=== PATIENT | female | born 1980 | race Caucasian/White ===

== ENCOUNTER 2018-03-14 16:18 | Emergency (ER) | payer SELFPAY ==
[~2018-03-14] VITALS: Ht 157.5 cm; Wt 99.8 kg
[~2018-03-14 16:18] MED LIST: BENZ100C PO; HYDR-971 PO; LANS30CA PO; LEVO500T59 PO
[2018-03-14] MEDS ORDERED: IV NORMAL SALINE 1,000ML 1,000 ML IV SCH (16:40)
[2018-03-14] MEDS ORDERED: IV NORMAL SALINE 1,000ML 1,000 ML IV ONE (16:45)
--- NOTE | 2018-03-14 16:48 | PHYS DOC ---
Past History Past Medical History: Diabetes Past Surgical History: Cholecystectomy, Alcohol Use: None Drug Use: None Adult General HPI HPI Patient is a 37-year-old female with a past history of [id number] diabetes. She states that she had been taking glipizide 5 mg daily and metformin 500 mg twice a day, but lost her insurance and has not had a refill and has run out of her medication about 3-4 weeks ago. She states she has been self administering another family member's insulin, 10 units of NovoLog, and 10 units of Lantus daily. However, she states over the past few days she has had increasing urinary frequency, and generalized fatigue. She has not had any pain. She denies any chest pain, shortness of breath, dizziness, lightheadedness , abdominal pain, nausea, vomiting, fevers, or chills. She states she checked her blood sugar on her father's glucometer, and her blood sugar read "high". She presents to the emergency department for evaluation. There are no alleviating, or exacerbating factors to her symptoms. Review of Systems Review of Systems Constitutional: Denies fever or chills [] Eyes: Denies change in visual acuity, redness, or eye pain [] HENT: Denies nasal congestion or sore throat [] Respiratory: Denies cough or shortness of breath [] Cardiovascular: The patient denies any shortness of breath, chest pain, palpitations, or orthopnea [] GI: Denies abdominal pain, nausea, vomiting, bloody stools or diarrhea [] : Denies dysuria or hematuria [] Musculoskeletal: Denies back pain or joint pain [] Integument: Denies rash or skin lesions [] Neurologic: Denies headache, focal weakness or sensory changes [] Endocrine: Reports polyuria or polydipsia [] All other systems were reviewed and found to be within normal limits, except as documented in this note. Allergies Allergies Allergies Coded Allergies Type Severity Reaction Last Updated Verified No Known Drug Allergies 06/04/14 No Physical Exam Physical Exam PHYSICAL EXAM: CONSTITUTIONAL: Well developed, well nourished HEAD: normocephalic, atraumatic EENT: PERRL, EOMI. Conjunctivae normal color, sclerae non-icteric; moist mucous membranes. NECK: Supple, non-tender; no meningismus. LUNGS: Lungs CTA, breathing even and unlabored. Normal air movement. HEART: Regular rate and rhythm, no murmur CHEST: No deformity; non-tender ABDOMEN: The abdomen is soft, and non-tender, no masses or bruits. EXTREM: Normal ROM; no deformity, no calf tenderness. Normal pulses palpable in all extremities. There is no pedal edema. SKIN: No rash; no diaphoresis NEURO: Alert; normal speech and cognition; CN's grossly intact; strength grossly intact without focal deficit. BACK: No CVA TTP. Current Patient Data Lab Results Laboratory Tests Test 03/14/18 16:36 Glucose (Fingerstick) 561 mg/dL (70-99) *H Laboratory Tests Test 03/14/18 16:36 03/14/18 16:50 03/14/18 17:00 03/14/18 17:45 Glucose (Fingerstick) 561 mg/dL 394 mg/dL White Blood Count 7.2 x10^3/uL Red Blood Count 5.20 x10^6/uL Hemoglobin 15.7 g/dL Hematocrit 46.7 % Mean Corpuscular Volume 90 fL Mean Corpuscular Hemoglobin 30 pg Mean Corpuscular Hemoglobin Concent 34 g/dL Red Cell Distribution Width 13.8 % Platelet Count 182 x10^3/uL Neutrophils (%) (Auto) 65 % Lymphocytes (%) (Auto) 24 % Monocytes (%) (Auto) 7 % Eosinophils (%) (Auto) 3 % Basophils (%) (Auto) 1 % Neutrophils # (Auto) 4.7 x10^3uL Lymphocytes # (Auto) 1.7 x10^3/uL Monocytes # (Auto) 0.5 x10^3/uL Eosinophils # (Auto) 0.2 x10^3/uL Basophils # (Auto) 0.1 x10^3/uL Sodium Level 128 mmol/L Potassium Level 4.0 mmol/L Chloride Level 93 mmol/L Carbon Dioxide Level 27 mmol/L Anion Gap 8 Blood Urea Nitrogen 12 mg/dL Creatinine 1.0 mg/dL Estimated GFR (Cockcroft-Gault) 63.1 BUN/Creatinine Ratio 12 Glucose Level 547 mg/dL Calcium Level 9.2 mg/dL Total Bilirubin 0.5 mg/dL Aspartate Amino Transf (AST/SGOT) 138 U/L Alanine Aminotransferase (ALT/SGPT) 166 U/L Alkaline Phosphatase 127 U/L Total Protein 8.2 g/dL Albumin 3.8 g/dL Albumin/Globulin Ratio 0.9 Acetone Level Neg Urine Collection Type Unknown Urine Color Yellow Urine Clarity Clear Urine pH 5.0 Urine Specific [place] <=1.005 Urine Protein Neg Urine Glucose (UA) >=1000 mg/dL Urine Ketones (Stick) Neg mg/dL Urine Blood Neg Urine Nitrite Neg Urine Bilirubin Neg Urine Urobilinogen Dipstick 0.2 mg/dL Urine Leukocyte Esterase Neg Urine RBC Rare /HPF Urine WBC Occ /HPF Urine Squamous Epithelial Cells Occ /LPF Urine Bacteria 0 /HPF Current Medications Medications (Trade) Dose Ordered Sig/Robel Route PRN Reason Start Time Stop Time Status Last Admin Dose Admin Sodium Chloride 1,000 ml @ 1,000 mls/hr Q1H IV 03/14/18 16:40 03/14/18 17:39 DC 03/14/18 17:05 Sodium Chloride 1,000 ml @ 1,000 mls/hr 1X ONCE IV 03/14/18 16:45 03/14/18 17:44 DC Insulin Human Regular (HumuLIN R VIAL) 10 unit 1X ONCE IV 03/14/18 17:20 03/14/18 17:21 DC 03/14/18 17:12 EKG EKG [Normal sinus rhythm with a normal rate, normal axis, normal intervals, there are no acute ischemic ST/T changes.] Radiology/Procedures Radiology/Procedures [] Course & Med Decision Making Course & Med Decision Making Pertinent Labs and Imaging studies reviewed. (See chart for details) [5:50 PM: The patient's condition remains a stable. After 1 L of IV fluids and 10 units of insulin her blood sugars 394. She'll be given another liter of IV fluid, for further glycemic control. I discussed importance of not taking another person's medication without her physician instructions, the need for resuming her medications in reestablishing care with a primary care provider to further manage her diabetes. Will restart the patient on her prescription medication and we discussed return precautions in detail. Pt noted to have elevated LFT's, states she has had them in the past, I encouraged her to have close outpatient monitoring of her LFT's Dragon Disclaimer Dragon Disclaimer This electronic medical record was generated, in whole or in part, using a voice recognition dictation system. Departure Departure: Impression: Primary Impression: Hyperglycemia Additional Impression: Non-insulin dependent type 2 diabetes mellitus Disposition: 01 HOME, SELF-CARE Condition: STABLE Referrals: NAME,JEAN-PIERRE VILLALOBOS (PCP) Patient Instructions: Diabetes Meal Planning Guide, Diabetes, FAQs, Diet - 2000 Calorie Diabetic, Diets for Diabetes, Food Labeling, Hyperglycemia, Type 2 Diabetes Mellitus, Adult Scripts Glipizide (GLIPIZIDE XL) 5 Mg Tab.er.24 5 MG PO DAILY, #30 TAB.SR 1 Refill Prov: GUERLINE WALLS MD 03/14/18 Metformin Hcl (METFORMIN HCL) 500 Mg Tablet 1 TAB PO BID, #60 TAB 1 Refill Prov: GUERLINE WALLS MD 03/14/18 Problem Qualifiers GUERLINE WALLS MD Mar 14, 2018 16:48
[2018-03-14 17:10] LABS: BASO # 0.1 x10^3/uL (0.0-0.2); BASO % 1 % (0-3); EOS # 0.2 x10^3/uL (0.0-0.7); EOS % 3 % (0-3); HEMATOCRIT 46.7 % (36.0-47.0); HEMOGLOBIN 15.7 g/dL (12.0-15.5); LYMPH # 1.7 x10^3/uL (1.0-4.8); LYMPH % 24 % (24-48); MEAN CORPUSCULAR HEMOGLOBIN 30 pg (25-35); MEAN CORPUSCULAR HGB CONC 34 g/dL (31-37); MEAN CORPUSCULAR VOLUME 90 fL (79-100); MONO # 0.5 x10^3/uL (0.0-1.1); MONO % 7 % (0-9); NEUT # 4.7 x10^3uL (1.8-7.7); NEUT % 65 % (31-73); PLATELET COUNT 182 x10^3/uL (140-400); RED CELL DISTRIBUTION WIDTH 13.8 % (11.5-14.5); WHITE BLOOD COUNT 7.2 x10^3/uL (4.0-11.0)
[2018-03-14] MEDS ORDERED: INSULIN REGULAR 100 UNIT/ML 3ML VIAL. IV ONE (17:20)
[2018-03-14 17:22] LABS: ALBUMIN 3.8 g/dL (3.4-5.0); ALBUMIN/GLOBULIN RATIO 0.9 (1.0-1.7); CALCIUM 9.2 mg/dL (8.5-10.1); GFR 63.1; TOTAL BILIRUBIN 0.5 mg/dL (0.2-1.0); TOTAL PROTEIN 8.2 g/dL (6.4-8.2)
--- NOTE | 2018-03-14 17:37 | EKG ---
[address] [address] Test Date: 2018-03-14 Test Time: 17:33:04 Pat Name: DAVEY GOLD Department: Room: Gender: F Fishing Hand: : 1980 Requested By: GUERLINE WALLS Order Number: [id number] Reading MD: Masoud Caro MD Measurements Intervals [place] Rate: 92 P: 12 CT: 164 QRS: 33 QRSD: 90 T: 21 QT: 354 QTc: 443 Interpretive Statements SINUS RHYTHM Electronically Signed On 03-15-2018 12:48:48 CDT by Masoud Caro MD
[2018-03-14 17:39] LABS: BILIRUBIN,URINE NEG (NEG); CLARITY,URINE CLEAR; COLOR,URINE YELLOW; GLUCOSE,URINE >=1000 mg/dL (NEG); NITRITE,URINE NEG (NEG); RBC,URINE RARE /HPF (0-2); UROBILINOGEN,URINE 0.2 mg/dL (0.2 mg/dL)
[2018-03-14 17:40] LABS: BACTERIA,URINE 0 /HPF (0-FEW); SQUAMOUS EPITHELIAL CELL,UR OCC /LPF; WBC,URINE OCC /HPF (0-4)
[2018-03-14] MEDS ORDERED: GLIP-24 PO (17:54)
[2018-03-14] MEDS ORDERED: METF500T16 PO (17:54)
[2018-03-14 18:29] VITALS: BP 126/87
== END 2018-03-14 18:44 | disposition home or self-care (01) ==
LOC: ER 16:18
DX: E11.65 Type 2 diabetes mellitus with hyperglycemia (principal); Z79.84 Long term (current) use of oral hypoglycemic drugs
CPT/HCPCS: 36415; 80053; 81001; 82010; 82947; 85025; 93005; 96361; 96374; 99285; J1815; J7030

== ENCOUNTER 2018-04-15 16:27 | Emergency (ER) | payer OTHER ==
[~2018-04-15] VITALS: Ht 157.5 cm; Wt 98.4 kg
[~2018-04-15 16:27] MED LIST changes: +GLIP-24 PO; +METF500T16 PO
[2018-04-15] MEDS ORDERED: IV NORMAL SALINE 1,000ML 1,000 ML IV SCH (16:50)
[2018-04-15 17:10] VITALS: BP 144/124
[2018-04-15] MEDS ORDERED: INSULIN REGULAR 100 UNIT/ML 3ML VIAL. IV ONE (17:15)
[2018-04-15 17:16] LABS: BASO % 0 % (0-3); EOS # 0.3 x10^3/uL (0.0-0.7); EOS % 4 % (0-3); HEMATOCRIT 44.4 % (36.0-47.0); LYMPH # 1.8 x10^3/uL (1.0-4.8); LYMPH % 26 % (24-48); MEAN CORPUSCULAR HEMOGLOBIN 30 pg (25-35); MEAN CORPUSCULAR HGB CONC 34 g/dL (31-37); MEAN CORPUSCULAR VOLUME 87 fL (79-100); MONO # 0.4 x10^3/uL (0.0-1.1); MONO % 6 % (0-9); NEUT # 4.5 x10^3uL (1.8-7.7); NEUT % 64 % (31-73); PLATELET COUNT 243 x10^3/uL (140-400); RED BLOOD COUNT 5.09 x10^6/uL (3.50-5.40); RED CELL DISTRIBUTION WIDTH 13.7 % (11.5-14.5)
[2018-04-15 17:30] LABS: ALBUMIN 3.8 g/dL (3.4-5.0); ALBUMIN/GLOBULIN RATIO 0.9 (1.0-1.7); CALCIUM 9.8 mg/dL (8.5-10.1); CREATININE 0.9 mg/dL (0.6-1.0); GFR 71.3; TOTAL BILIRUBIN 0.6 mg/dL (0.2-1.0); TOTAL PROTEIN 8.1 g/dL (6.4-8.2)
--- NOTE | 2018-04-15 17:32 | PHYS DOC ---
Past History Past Medical History: Diabetes Past Surgical History: Cholecystectomy, Additional Smoking Information: quit 6 years ago Alcohol Use: None Drug Use: None Adult General Chief Complaint Chief Complaint: HYPERGLYCEMIA HPI HPI Patient is a 37 year old female with history of type 2 diabetes on oral medication who presents with complaining of high blood sugar. Patient states her blood sugar was high last night and she went to her primary care physician office today and had blood sugar of more than 400 and treated with 10 units of insulin and recommended to come to ER. Patient denies missing her medication, fever and chills, vomiting and diarrhea, urinary symptoms, . Review of Systems Review of Systems Constitutional: Denies fever or chills [] Eyes: Denies change in visual acuity, redness, or eye pain [] HENT: Denies nasal congestion or sore throat [] Respiratory: Denies cough or shortness of breath [] Cardiovascular: No additional information not addressed in HPI [] GI: Denies abdominal pain, nausea, vomiting, bloody stools or diarrhea [] : Denies dysuria or hematuria [] Musculoskeletal: Denies back pain or joint pain [] Integument: Denies rash or skin lesions [] Neurologic: Denies headache, focal weakness or sensory changes [] Endocrine: Denies polyuria or polydipsia [] All other systems were reviewed and found to be within normal limits, except as documented in this note. Current Medications Current Medications Current Medications Medications (Trade) Dose Ordered Sig/Robel Start Time Stop Time Status Last Admin Dose Admin Insulin Human Regular (HumuLIN R VIAL) 10 unit 1X ONCE 04/15/18 17:15 04/15/18 17:16 DC Sodium Chloride 1,000 ml @ 1,000 mls/hr Q1H 04/15/18 16:50 04/15/18 17:49 Allergies Allergies Allergies Coded Allergies Type Severity Reaction Last Updated Verified No Known Drug Allergies 06/04/14 No Physical Exam Physical Exam Constitutional: Well developed, well nourished, no acute distress, non-toxic appearance. [] HENT: Normocephalic, atraumatic, oropharynx dry, no oral exudates, nose normal. [] Eyes: PERRLA, EOMI, conjunctiva normal, no discharge. [] Neck: Normal range of motion, no tenderness, supple, no stridor. [] Cardiovascular:Heart rate regular rhythm, no murmur [] Lungs & Thorax: Bilateral breath sounds clear to auscultation [] Abdomen: Bowel sounds normal, soft, no tenderness, no masses, no pulsatile masses. [] Skin: Warm, dry, no erythema, no rash. [] Back: No tenderness, no CVA tenderness. [] Extremities: No tenderness, no cyanosis, no clubbing, ROM intact, no edema. [] Neurologic: Alert and oriented X 3, normal motor function, normal sensory function, no focal deficits noted. [] Psychologic: Affect normal, judgement normal, mood normal. [] Current Patient Data Vital Signs Vital Signs Date Time Temp Pulse Resp B/P (MAP) Pulse Ox O2 Delivery O2 Flow Rate FiO2 04/15/18 17:10 98.4 77 16 97 Room Air Lab Results Laboratory Tests Test 04/15/18 16:42 04/15/18 17:00 Glucose (Fingerstick) 390 mg/dL (70-99) H White Blood Count 7.0 x10^3/uL (4.0-11.0) Red Blood Count 5.09 x10^6/uL (3.50-5.40) Hemoglobin 15.0 g/dL (12.0-15.5) Hematocrit 44.4 % (36.0-47.0) Mean Corpuscular Volume 87 fL (79-100) Mean Corpuscular Hemoglobin 30 pg (25-35) Mean Corpuscular Hemoglobin Concent 34 g/dL (31-37) Red Cell Distribution Width 13.7 % (11.5-14.5) Platelet Count 243 x10^3/uL (140-400) Neutrophils (%) (Auto) 64 % (31-73) Lymphocytes (%) (Auto) 26 % (24-48) Monocytes (%) (Auto) 6 % (0-9) Eosinophils (%) (Auto) 4 % (0-3) H Basophils (%) (Auto) 0 % (0-3) Neutrophils # (Auto) 4.5 x10^3uL (1.8-7.7) Lymphocytes # (Auto) 1.8 x10^3/uL (1.0-4.8) Monocytes # (Auto) 0.4 x10^3/uL (0.0-1.1) Eosinophils # (Auto) 0.3 x10^3/uL (0.0-0.7) Basophils # (Auto) 0.0 x10^3/uL (0.0-0.2) Platelet Estimate Pending EKG EKG [] Radiology/Procedures Radiology/Procedures [] Course & Med Decision Making Course & Med Decision Making Pertinent Labs reviewed. (See chart for details) Evaluation of patient in ER showed 37-year-old female patient with history of diabetes who sent from her primary care physician office because of blood sugar of more than 400. Patient already treated with 10 units of insulin in primary care physician office and had blood sugar of 380 in ER. Patient treated with IV fluid and before giving insulin her blood sugar dropped to 220 and no insulin was given in ER. Labs was unremarkable and patient instructed to follow-up with diabetic diet and continue home medication. Dragon Disclaimer Dragon Disclaimer This electronic medical record was generated, in whole or in part, using a voice recognition dictation system. Departure Departure: Impression: Primary Impression: Hyperglycemia Additional Impressions: Uncontrolled diabetes mellitus Abnormal liver function test Disposition: HOME, SELF-CARE (@1756) Condition: IMPROVED Referrals: NAME,JEAN-PIERRE VILLALOBOS (PCP) Patient Instructions: 2400 Calorie Diet for Diabetes Meal Planning, Diabetes Meal Planning Guide, Hyperglycemia Additional Instructions: Drink plenty of liquids Follow-up with your primary care physician in 3-5 days Return to ER if not getting better Continue home medication Problem Qualifiers ABIDA SINGLETON MD Apr 15, 2018 17:32
[2018-04-15 17:34] LABS: POTASSIUM 4.4 mmol/L (3.5-5.1)
[2018-04-15 17:46] LABS: % BANDS 2 % (0-9); % EOS 6 % (0-5); % LYMPHS 25 % (24-48); % MONOS 4 % (0-10); % MYELOS 1 % (0-0); % SEGS 61 % (35-66)
[2018-04-15 17:48] LABS: PLT ESTIMATE ADEQUATE (ADEQUATE)
[2018-04-15 17:53] LABS: BILIRUBIN,URINE NEG (NEG); CLARITY,URINE HAZY; COLOR,URINE YELLOW; GLUCOSE,URINE >=1000 mg/dL (NEG); NITRITE,URINE NEG (NEG); UROBILINOGEN,URINE 0.2 mg/dL (0.2 mg/dL); WBC,URINE OCC /HPF (0-4)
[2018-04-15 17:54] LABS: BACTERIA,URINE 0 /HPF (0-FEW); SQUAMOUS EPITHELIAL CELL,UR MANY /LPF
== END 2018-04-15 18:36 | disposition home or self-care (01) ==
LOC: ER 16:27
DX: E11.65 Type 2 diabetes mellitus with hyperglycemia (principal); R79.89 Other specified abnormal findings of blood chemistry; Z87.891 Personal history of nicotine dependence
CPT/HCPCS: 36415; 80053; 81001; 82947; 83690; 85007; 85025; 99284

== ENCOUNTER 2021-01-26 11:36 | Emergency (ER) | payer MEDICAID, OTHER ==
[~2021-01-26] VITALS: Ht 157.5 cm; Wt 94.8 kg
[~2021-01-26 11:36] MED LIST changes: +HYDR-3165 PO; -HYDR-971 PO
[2021-01-26] MEDS ORDERED: DEXAMETHASONE SOD PHOS 10 MG/ML VIAL. IV ONE (12:00)
[2021-01-26] MEDS ORDERED: ACETAMINOPHEN 500 MG TABLET PO ONE (12:00)
[2021-01-26] MEDS ORDERED: diphenhydrAMINE 50 MG/ML VIAL IVP ONE (12:00)
[2021-01-26] MEDS ORDERED: IBUPROFEN 600 MG TABLET. PO ONE (12:00)
--- NOTE | 2021-01-26 12:01 | PHYS DOC ---
Past History Past Medical History: Diabetes (JACQUE MOORE APRN) Past Surgical History: No Surgical History (JACQUE MOORE APRN) Alcohol Use: None Drug Use: None (JACQUE MOORE APRN) General Adult EDM: Chief Complaint: SHORTNESS OF BREATH HPI: HPI: Patient is a 40-year-old female who presents with cough and shortness of breath. Patient states she was seen by her PCP on and given amoxicillin and steroids. Patient has a history of COPD and has been using her albuterol at home. Denies fevers. Denies recent illness or exposure to Covid. "My son just recover from a upper respiratory infection". History of diabetes and COPD. (JACQUE MOORE APRN) Review of Systems: Review of Systems: Constitutional: Denies fever or chills Eyes: Denies change in visual acuity HENT: Denies nasal congestion or sore throat Respiratory: Reports cough and shortness of breath Cardiovascular: Denies chest pain or edema GI: Denies abdominal pain, nausea, vomiting, bloody stools or diarrhea : Denies dysuria Musculoskeletal: Denies back pain or joint pain Integument: Denies rash Neurologic: Denies headache, focal weakness or sensory changes Endocrine: Denies polyuria or polydipsia Lymphatic: Denies swollen glands Psychiatric: Denies depression or anxiety (JACQUE MOORE APRN) Allergies: Allergies: Allergies Coded Allergies Type Severity Reaction Last Updated Verified No Known Drug Allergies 04/16/18 No (JACQUE MOORE APRN) Physical Exam: PE: General: Appears well, non toxic, and comfortable Skin: Warm, dry. Normal for ethnicity. HEENT: Atraumatic. PERRLA. Moist mucous membranes. Neck: Trachea midline. Normal ROM. Respiratory: Normal WOB. CTAB w/o w/r/r. No tachypnea. Cardiovascular: Regular rate and rhythm. Normal peripheral perfusion. No edema. Abdomen: Soft. Non tender. No distension. Back: Normal ROM. Musculoskeletal: No swelling or deformity. Neuro: Alert and oriented x 4. MAEE. Psych: Normal affect and mood. (JACQUE MOORE APRN) Current Patient Data: Vital Signs: Vital Signs Date Time Temp Pulse Resp B/P (MAP) Pulse Ox O2 Delivery O2 Flow Rate FiO2 01/26/21 11:47 97.7 106 26 156/75 99 Room Air (JACQUE MOORE APRN) EKG: EKG: [] (JACQUE MOORE APRN) Radiology/Procedures: Radiology/Procedures: []AP chest. HISTORY: Cough AP view was taken of the chest. Lungs are clear. Heart is normal in size. There is no pleural effusion. IMPRESSION: 1. No acute infiltrates. Electronically signed by: Farhan Mathis MD (01/26/2021 12:29 PM) [id number] (JACQUE MOORE APRN) Heart Score: C/O Chest Pain: No Risk Factors: Risk Factors: DM, Current or recent (<one month) smoker, HTN, HLP, family history of CAD, obesity. Risk Scores: Score 0 - 3: 2.5% MACE over next 6 weeks - Discharge Home Score 4 - 6: 20.3% MACE over next 6 weeks - Admit for Clinical Observation Score 7 - 10: 72.7% MACE over next 6 weeks - Early Invasive Strategies (JACQUE MOORE APRN) Course & Med Decision Making: Course & Med Decision Making Pertinent Labs and Imaging studies reviewed. (See chart for details) [] 32-year-old female presents with cough and shortness of breath. Patient was placed on amoxicillin and steroids on by Dr. Stewart. Patient is al so been using her albuterol inhaler at home. Patient has a history of COPD. Hemodynamically stable. Patient given dexamethasone, Tylenol, Motrin, Benadryl. Swabbed for Covid. All labs unremarkable. Chest x-ray was unremarkable. Patient was likely has bronchitis. Instructed patient to continue taking antibiotic, albuterol, and Medrol Dosepak given by PCP. Patient should follow up with Dr. Stewart if symptoms do not improve. Patient given strict return precautions. Ibuprofen and Tylenol at home for fevers/or discomfort. Patient is hemodynamically stable. (JACQUE MOORE APRN) Course & Med Decision Making Did not see or evaluate patient. Agree with CHEMICAL DEPENDENCY NURSE's work-up and disposition per note (WALLY MACIEL MD) Dragon Disclaimer: Dragon Disclaimer: This electronic medical record was generated, in whole or in part, using a voice recognition dictation system. (JACQUE MOORE APRN) Departure Departure: Impression: Primary Impression: Bronchitis Additional Impression: Cough Disposition: HOME / SELF CARE / HOMELESS Condition: STABLE Referrals: NAME,JEAN-PIERREVASU VILLALOBOS (PCP) Patient Instructions: Acute Bronchitis Additional Instructions: You were seen in the emergency room for cough and shortness of breath. You were given steroids, ibuprofen, Tylenol while in the emergency room. All of your labs are unremarkable. Chest x-ray was unremarkable. Continue taking your antibiotic, steroids, and using your albuterol inhaler for symptom control. Ibuprofen and Tylenol for fever/discomfort. Please follow-up with your PCP if symptoms continue. Return to the emergency room if you have worsening symptoms or concerns. EMERGENCY DEPARTMENT GENERAL DISCHARGE INSTRUCTIONS Thank you for coming to [facility] (ED) today and trusting us with you care. We trust that you had a positivie experience in our Emergency Department. If you wish to speak to the department management, you may call the director at [phone]. YOUR FOLLOW UP INSTRUCTIONS ARE FOLLOWS: 1. Do you have a private Doctor? If you do not have a private doctor, please ask for a resource list of physicians or clinics that may be able to assist you with follow up care. 2. The Emergency Physician has interpreted your x-rays. The X-Ray specialist will also review them. If there is a change in the findings, you will be notified in 48 hours when at all possible. 3. A lab test or culture has been done, your results will be reviewed and you will be notified if you need a change in treatment. ADDITIONAL INSTRUCTIONS AND INFORMATION: 1. Your care today has been supervised by a physician who is specially trained in emergency care. Many problems require more than one evaluation for a complete diagnosis and treatment. We recommend that you schedule your follow up appointment as recommended to ensure complete treatment of you illness or injury. If you are unable to obtain follow up care and continue to have a problem, or if your condition worsens, we recommend that you return to the ED. 2. We are not able to safely determine your condition over the phone nor are we able to give sound medical advice over the phone. For these safety reasons, if you call for medical advice we will ask you to come to the ED for further evaluation. 3. If you have any questions regarding these discharge instructions please call the ED at [phone]. SAFETY INFORMATION: In the interest of safety, wellness, and injury prevention; we encourage you to wear your sealbelt, if you smoke; quite smoking, and we encourage family to use a protective helmet for bicycling and other sporting events that present an increased risk for head injury. IF YOUR SYMPTOMS WORSEN OR NEW SYMPTOMS DEVELOP, OR YOU HAVE CONCERNS ABOUT YOUR CONDITION; OR IF YOUR CONDITION WORSENS WHILE YOU ARE WAITING FOR YOUR FOLLOW UP APPOINTMENT; EITHER CONTACT YOUR PRIMARY CARE DOCTOR, THE PHYSICIAN WHOSE NAME AND NUMBER YOU WERE GIVEN, OR RETURN TO THE ED IMMEDIATELY. JACQUE MOORE APRN Jan 26, 2021 12:01 WALLY MACIEL MD Jan 26, 2021 17:30
[2021-01-26 12:11] LABS: BASO % 0 % (0-3); EOS # 0.1 x10^3/uL (0.0-0.7); EOS % 1 % (0-3); HEMATOCRIT 46.3 % (36.0-47.0); HEMOGLOBIN 15.5 g/dL (12.0-15.5); LYMPH # 1.5 x10^3/uL (1.0-4.8); LYMPH % 17 % (24-48); MEAN CORPUSCULAR HEMOGLOBIN 30 pg (25-35); MEAN CORPUSCULAR HGB CONC 34 g/dL (31-37); MEAN CORPUSCULAR VOLUME 88 fL (79-100); MONO # 0.6 x10^3/uL (0.0-1.1); MONO % 6 % (0-9); NEUT # 6.8 x10^3uL (1.8-7.7); NEUT % 76 % (31-73); PLATELET COUNT 282 x10^3/uL (140-400); RED BLOOD COUNT 5.24 x10^6/uL (3.50-5.40); RED CELL DISTRIBUTION WIDTH 13.8 % (11.5-14.5); WHITE BLOOD COUNT 8.9 x10^3/uL (4.0-11.0)
[2021-01-26 12:22] LABS: CALCIUM 9.5 mg/dL (8.5-10.1); CREATININE 0.8 mg/dL (0.6-1.0); GFR 80.3; POTASSIUM 4.5 mmol/L (3.5-5.1)
--- NOTE | 2021-01-26 12:31 | RAD ---
AP chest. HISTORY: Cough AP view was taken of the chest. Lungs are clear. Heart is normal in size. There is no pleural effusio n. IMPRESSION: 1. No acute infiltrates. Electronically signed by: Farhan Mathis MD (01/26/2021 12:29 PM) [id number]
[2021-01-26 13:19] VITALS: BP 134/85
== END 2021-01-26 13:32 | disposition home or self-care (01) ==
LOC: ER 11:36
DX: J40 Bronchitis, not specified as acute or chronic (principal); E11.9 Type 2 diabetes mellitus without complications; Z20.822 Contact with and (suspected) exposure to COVID-19
CPT/HCPCS: 71045; 80048; 85025; 96374; 96375; 99284; C9803; J1100; J1200; U0003